=== PATIENT | male | born 1935 | race Caucasian/White ===

== ENCOUNTER 2020-05-30 12:04 | Inpatient (IN) | payer MEDICARE, OTHER ==
[~2020-05-30] VITALS: Ht 182.9 cm; Wt 83.5 kg
[~2020-05-30 12:04] MED LIST: BAYER CHEWABLE81 MG PO; FEXMID7.5 MG PO; LISINOPRIL2.5 MG PO; MIRALAX17 GM PO; OXYTROL PATCH1 PATCH TRANSDERM; TOPROL XL25 MG PO
[2020-05-30 13:08] LABS: BASOPHILS 0.3 % (0-2); EOSINOPHILS 0.1 % (0-7); HEMATOCRIT 44.2 % (42.0-54.0); HEMOGLOBIN 14.6 g/dL (13.5-17.5); IMMATURE GRANULOCYTES 0.6 % (0-5); LYMPHOCYTES 17.2 % (15-50); MCH 29.7 pg (26.0-34.0); MCV 89.8 fL (80.0-100.0); MEAN PLATELET VOLUME 10.1 fL (7.4-10.4); MONOCYTES 8.5 % (2-11); NEUTROPHILS 73.3 % (40-80); PLATELET COUNT 210 10x3/uL (130-400); RBC 4.92 10x6/uL (4.20-6.10); RDW 13.9 % (11.5-14.5); WBC 9.8 10x3/uL (4.8-10.8)
[2020-05-30 13:16] LABS: APTT 32.6 SECONDS (22.8-39.4); INR 1.03 (0.85-1.17); PROTIME 13.5 SECONDS (11.6-15.0)
[2020-05-30 13:18] LABS: CALC OSMOLALITY 286 mosm/kg (275-300); CALCIUM 9.2 mg/dL (8.5-10.1); CARBON DIOXIDE 24.9 mmol/L (21.0-32.0); CHLORIDE - SERUM 100 mmol/L (98-107); CREATININE - SERUM 1.8 mg/dL (0.6-1.3); GLUCOSE 121 mg/dL (74-106); POTASSIUM - SERUM 4.2 mmol/L (3.5-5.1); SODIUM 135 mmol/L (136-145); UREA NITROGEN 57 mg/dL (7-18); eGFR NON AFRICAN AMERICAN 38 mL/min (90-120)
[2020-05-30 13:21] LABS: BILIRUBIN NEGATIVE (NEGATIVE); GLUCOSE NEGATIVE (NEGATIVE); KETONE MODERATE mg/dL (NEGATIVE); NITRITE NEGATIVE (NEGATIVE); UROBILINOGEN NORMAL (NORMAL)
[2020-05-30 13:23] LABS: BACTERIA MODERATE /hpf (NEGATIVE); RED CELLS - URINE 0-5 /hpf (0-5); WHITE CELLS - URINE 0-5 /hpf (NEGATIVE)
[2020-05-30 13:35] LABS: ALBUMIN 3.2 g/dL (3.4-5.0); ALKALINE PHOSPHATASE 124 U/L (30-120); ALT (SGPT) 21 U/L (10-68); BILIRUBIN - TOTAL 0.53 mg/dL (0.2-1.3); CKMB 0.7 U/L (0.0-3.6); CREATINE KINASE 59 UL (21-232); MAGNESIUM - SERUM 2.5 mg/dL (1.8-2.4); PROTEIN - SERUM 7.7 g/dL (6.4-8.2); THYROID STIMULATING HORMONE 0.89 uIU/mL (0.36-3.74)
[2020-05-30 13:36] LABS: TROPONIN-I < 0.017 ng/mL (0.000-0.060)
[2020-05-30 14:05] LABS: UDS - AMPHET NEGATIVE QUAL (NEGATIVE); UDS - BARB NEGATIVE QUAL (NEGATIVE); UDS - BENZO NEGATIVE QUAL (NEGATIVE); UDS - COCAINE NEGATIVE QUAL (NEGATIVE); UDS - OPIATE NEGATIVE QUAL (NEGATIVE); UDS - PCP NEGATIVE QUAL (NEGATIVE); UDS - THC NEGATIVE QUAL (NEGATIVE)
[2020-05-30 16:00] VITALS: BP 130/81
--- NOTE | 2020-05-30 16:27 | NUR ---
PT ARTRIVED VIA STRECHER AND ASSISTED TO BED. BED ALARM PLACED AND FUNCTIONING CORRECTLY. CALL LIGHT WITHIN REACH. PT PULLED OUT IV UPON TRANSFER. 20 G RESTARTED TO RIGHT FOREARM X1 ATTEMPT. DENIES NEEDS OR PAIN AT THIS TIME. ALERT AND CONFUSED. BABY MONITOR PLACED IN ROOM TO KEEP EYES ON PT. WILL CONTINUE TO MONITOR.
[2020-05-30 17:41] VITALS: BP 130/81; BMI 25.0
[2020-05-30 20:40] VITALS: BP 155/96
--- NOTE | 2020-05-30 20:54 | NUR ---
PATIENT IS RESTING IN BED. HE IS CONFUSED X 4. HE IS ON 2 LITERS NASAL CANULA. HE IS ON IV FLUIDS. WE WILL CONTINUE TO MONITOR HIS RESPIRATORY STATUS.
[2020-05-31 01:32] VITALS: BP 152/91
[2020-05-31 03:57] VITALS: BP 150/90
--- NOTE | 2020-05-31 04:13 | NUR ---
PATIENT IS RESTING IN BED. HE IS CONFUSED. HE IS INCONTINENT. HE IS ON NASAL CANULA. WE WILL CONTINUE TO MONITOR HIS RESPIRATORY STATUS.
[2020-05-31 05:53] LABS: BASOPHILS 0.3 % (0-2); EOSINOPHILS 0.1 % (0-7); HEMATOCRIT 43.8 % (42.0-54.0); HEMOGLOBIN 14.3 g/dL (13.5-17.5); IMMATURE GRANULOCYTES 0.6 % (0-5); LYMPHOCYTES 11.3 % (15-50); MCH 29.1 pg (26.0-34.0); MCHC 32.6 g/dL (31.0-37.0); MCV 89.2 fL (80.0-100.0); MONOCYTES 8.6 % (2-11); NEUTROPHILS 79.1 % (40-80); PLATELET COUNT 191 10x3/uL (130-400); RBC 4.91 10x6/uL (4.20-6.10); RDW 14.1 % (11.5-14.5)
[2020-05-31 05:57] LABS: WBC 7.1 10x3/uL (4.8-10.8)
[2020-05-31 06:32] LABS: ANION GAP 14.2 mmol/L (8-16); CALCIUM 9.3 mg/dL (8.5-10.1); CARBON DIOXIDE 22.2 mmol/L (21.0-32.0); CREATININE - SERUM 1.3 mg/dL (0.6-1.3); MAGNESIUM - SERUM 2.3 mg/dL (1.8-2.4); POTASSIUM - SERUM 4.4 mmol/L (3.5-5.1)
[2020-05-31 08:11] VITALS: BP 121/74
--- NOTE | 2020-05-31 10:59 | NUR ---
CALLED RONNI ESPAÑA AND UPDATED HER ON PT'S CONDITION.
--- NOTE | 2020-05-31 12:00 | NUR ---
NEW 22G IV STARTED TO LT WRIST IV X1 STICK, BLOOD SAMPLE COLLECTED AND TAKEN TO LAB. ALSO CLEANED PT UP FROM INCONT EPISODE. PT DENIES ANY NEEDS AT THIS TIME. CALL LIGHT IN REACH, NAD NOTED, WILL CONTINUE TO MONITOR.
[2020-05-31 12:02] VITALS: Ht 182.9 cm; Wt 83.5 kg
[2020-05-31 12:13] LABS: C-REACTIVE PROTEIN 15.8 mg/dL (0.0-0.9)
--- NOTE | 2020-05-31 13:50 | NUR ---
PT UNABLE TO PROVIDED INFORMATION ABOUT HOME MEDS, CALLED [facility] AND DID NOT GET ANYONE TO ANSWER PHONE. RONNI DAUGHTER IN LAW ALSO DOES NOT KNOW WHAT PT'S CURRENT MEDICATIONS ARE, PT MEDS WERE CHANGED WHEN PT WENT TO CARE HOME.
[2020-05-31 14:55] VITALS: BP 141/74
[2020-05-31 20:49] VITALS: BP 123/70
[2020-06-01 03:56] VITALS: BP 159/95
[2020-06-01 06:30] LABS: BASOPHILS 0.1 % (0-2); EOSINOPHILS 0.1 % (0-7); HEMATOCRIT 35.7 % (42.0-54.0); HEMOGLOBIN 11.6 g/dL (13.5-17.5); IMMATURE GRANULOCYTES 0.4 % (0-5); LYMPHOCYTES 8.8 % (15-50); MCH 28.9 pg (26.0-34.0); MCHC 32.5 g/dL (31.0-37.0); MEAN PLATELET VOLUME 9.7 fL (7.4-10.4); MONOCYTES 7.9 % (2-11); NEUTROPHILS 82.7 % (40-80); PLATELET COUNT 200 10x3/uL (130-400); RBC 4.01 10x6/uL (4.20-6.10); RDW 13.8 % (11.5-14.5); WBC 7.7 10x3/uL (4.8-10.8)
[2020-06-01 06:43] LABS: MAGNESIUM - SERUM 2.1 mg/dL (1.8-2.4); PHOSPHOROUS 2.7 mg/dL (2.5-4.9)
[2020-06-01 08:06] VITALS: BP 143/71
--- NOTE | 2020-06-01 09:32 | NUR ---
PROVIDED UPDATE TO LORRAINE ESPAÑA.
--- NOTE | 2020-06-01 13:28 | NUR ---
PT RESTING COMFORTABLY IN BED, DENIES ANY NEEDS AT THIS TIME. CALL LIGHT IN REACH, WILL CONTINUE TO MONITOR.
[2020-06-01 15:06] VITALS: BP 154/87
[2020-06-01 16:35] VITALS: BP 120/71
--- NOTE | 2020-06-01 16:40 | NUR ---
CLEANED PT UP FROM INCONT EPISODE. PT DENIES ANY NEEDS AT THIS TIME. CALL LIGHT IN REACH, NAD NOTED, WILL CONTINUE TO MONITOR.
[2020-06-01 19:25] VITALS: BP 140/75
[2020-06-02 04:38] VITALS: BP 156/82
[2020-06-02 08:46] VITALS: BP 165/82
--- NOTE | 2020-06-02 08:50 | NUR ---
AM MEDS GIVEN AT THIS TIME. ALSO ASSISTED PT WITH BREAKFAST AND CLEANED PT UP FROM INCONT CARE. PT DENIES ANY NEEDS AT THIS TIME. MORE ALERT TODAY BUT CONFUSED. CALL LIGHT IN REACH, NAD NOTED, WILL CONTINUE PLAN OF CARE.
[2020-06-02 10:13] LABS: BASOPHILS 0.6 % (0-2); EOSINOPHILS 0.1 % (0-7); HEMOGLOBIN 13.4 g/dL (13.5-17.5); IMMATURE GRANULOCYTES 0.3 % (0-5); LYMPHOCYTES 8.1 % (15-50); MCH 30.2 pg (26.0-34.0); MCHC 32.7 g/dL (31.0-37.0); MCV 92.6 fL (80.0-100.0); MEAN PLATELET VOLUME 9.5 fL (7.4-10.4); MONOCYTES 6.9 % (2-11); PLATELET COUNT 174 10x3/uL (130-400); RBC 4.43 10x6/uL (4.20-6.10); RDW 13.9 % (11.5-14.5); WBC 9.1 10x3/uL (4.8-10.8)
[2020-06-02 10:33] LABS: ALBUMIN 2.3 g/dL (3.4-5.0); BILIRUBIN - DIRECT 0.14 mg/dL (0.00-0.30); BILIRUBIN - INDIRECT 0.26 mg/dL (0.00-1.00); BILIRUBIN - TOTAL 0.4 mg/dL (0.2-1.3); MAGNESIUM - SERUM 1.9 mg/dL (1.8-2.4); PROTEIN - SERUM 6.1 g/dL (6.4-8.2)
[2020-06-02 14:49] VITALS: BP 154/83
--- NOTE | 2020-06-02 17:26 | NUR ---
CLEANED PT UP FROM INCONT EPISODE.
[2020-06-02 21:07] VITALS: BP 145/72
[2020-06-03 07:47] VITALS: BP 153/92
--- NOTE | 2020-06-03 08:00 | NUR ---
PT RECEIVED AWAKE AND ALERT BUT CONFUSED. POSITIONED IN BED FOR MEALS. ASSIST TO EAT. MEDS GIVEN. PT IS INCONTINENT.
[2020-06-03 13:04] VITALS: BP 154/79
[2020-06-03 14:05] LABS: BASOPHILS 0.1 % (0-2); EOSINOPHILS 0.1 % (0-7); HEMATOCRIT 39.8 % (42.0-54.0); HEMOGLOBIN 13.4 g/dL (13.5-17.5); IMMATURE GRANULOCYTES 0.4 % (0-5); LYMPHOCYTES 7.9 % (15-50); MCH 29.3 pg (26.0-34.0); MCHC 33.7 g/dL (31.0-37.0); MEAN PLATELET VOLUME 9.6 fL (7.4-10.4); MONOCYTES 4.9 % (2-11); NEUTROPHILS 86.6 % (40-80); RBC 4.57 10x6/uL (4.20-6.10); RDW 13.8 % (11.5-14.5); WBC 11.2 10x3/uL (4.8-10.8)
[2020-06-03 14:06] LABS: MCV 87.1 fL (80.0-100.0); PLATELET COUNT 256 10x3/uL (130-400)
[2020-06-03 14:19] LABS: ALBUMIN 2.5 g/dL (3.4-5.0); ANION GAP 11.2 mmol/L (8-16); BILIRUBIN - TOTAL 0.49 mg/dL (0.2-1.3); CALCIUM 8.7 mg/dL (8.5-10.1); CARBON DIOXIDE 22.8 mmol/L (21.0-32.0); CREATININE - SERUM 1.2 mg/dL (0.6-1.3); MAGNESIUM - SERUM 1.9 mg/dL (1.8-2.4); PHOSPHOROUS 2.2 mg/dL (2.5-4.9); PROTEIN - SERUM 6.3 g/dL (6.4-8.2)
--- NOTE | 2020-06-03 14:26 | NUR ---
Nutrition Follow-up: Chart reviewed. Noted patient with L 1st toe infection. Diet: Cardiac PO intake: 50% x last 3 meals Last BM: 06/01/20 x 2. Wt: 184# (05/31/20) Meds reviewed. Labs noted: Glu 121(H), PO4 2.2(L) Recommend continue current diet as tolerated. Will add Ensure TID for added nutrients and to potentially help with wound healing. RD following.
[2020-06-03 16:58] VITALS: BP 147/94
--- NOTE | 2020-06-03 19:20 | NUR ---
REPORT RECIEVED AND ROUNDING COMPLETE. PATIENT LAYING IN BED LOW FOWLERS POSITION, ASSISTED DAY NURSE IN REDRESSING PATIENT AND CHANGING WET PADS. PATIENT HAS A PIV TO THE LEFT WRIST THAT IS RUNNING FLUIDS AT THIS TIME. SHOWS NO S/SX OF DISTRESS, ONE MINUTE TALKING AND MAKING SENSE THEN THE NEXT WORD SALAD, PATIENT IS VERY PLEASENT. BED ALARM ON AND ALSO VIDEO MONITORING. CALL LIGHT WITH IN REACH AND BED IN LOWEST LOCKED POSITION.
[2020-06-03 20:00] VITALS: BP 173/81
--- NOTE | 2020-06-03 20:56 | NUR ---
WENT INTO [facility] FOR [facility] AND PATIENT HAS PULLED OUT PIV, CATH INTACT. FULL BATH AND LINEN CHANGE COMPLETE. WILL CALL THE MD CLOTH FOLDER HAND AND LET THEM KNOW PATIENT STATES HE WOULD NO LIKE ANOTHER. BED IN LOWEST LOCKED POSITION AND BED ALARM IS ON AND WORKING.
--- NOTE | 2020-06-03 22:34 | NUR ---
TALKED WITH RYANN LEONARD AND SHE STATED TO PUT IN CONSULT OF A PICC LINE FOR THE MORNING. WILL FOLLOW ORDERS.
[2020-06-04 04:00] VITALS: BP 162/94
[2020-06-04 07:39] VITALS: BP 158/87
[2020-06-04 08:29] LABS: ALBUMIN 2.7 g/dL (3.4-5.0); ANION GAP 13.5 mmol/L (8-16); BILIRUBIN - TOTAL 0.7 mg/dL (0.2-1.3); CALCIUM 9.2 mg/dL (8.5-10.1); CARBON DIOXIDE 23.6 mmol/L (21.0-32.0); CREATININE - SERUM 1.1 mg/dL (0.6-1.3); PHOSPHOROUS 2.1 mg/dL (2.5-4.9); POTASSIUM - SERUM 4.1 mmol/L (3.5-5.1); PROTEIN - SERUM 6.1 g/dL (6.4-8.2)
[2020-06-04 08:56] LABS: BASOPHILS 0.3 % (0-2); EOSINOPHILS 0 % (0-7); HEMATOCRIT 39.4 % (42.0-54.0); HEMOGLOBIN 13.4 g/dL (13.5-17.5); IMMATURE GRANULOCYTES 1.2 % (0-5); LYMPHOCYTES 13.5 % (15-50); MCH 29.3 pg (26.0-34.0); MEAN PLATELET VOLUME 9.6 fL (7.4-10.4); RBC 4.58 10x6/uL (4.20-6.10); RDW 13.6 % (11.5-14.5)
[2020-06-04 08:57] LABS: PLATELET COUNT 140 10x3/uL (130-400); WBC 7.7 10x3/uL (4.8-10.8)
--- NOTE | 2020-06-04 10:37 | MORECARE ---
CASE MANAGEMENT DISCHARGE SUMMARY PATIENT: AVA DONG UNIT: [id number] ADM DATE: 05/30/20 AGE: 85 : 37 SEX: M ROOM/BED: D.2131 AUTHOR: RAMSEY GARZA PHYSICIAN: REFERRING PHYSICIAN: MARVIN BELL MD DATE OF SERVICE: 06/04/20 Discharge Plan Patient Name: AVA DONG [facility] [facility] 1935 Planned Disposition: [facility] Facility Anticipated Discharge Date: Discharge Date: Expected LOS: Initial Reviewer: [email or web address] Initial Review Date: 05/30/2020 Generated: 06/04/20 11:36 am Patient Name: AVA DONG Page 64382 at 1037 All edits/amendments must be made on the electronic document DICTATION DATE: 06/04/20 1036 GRINDER SETUP OPERATOR: SANDRA 06/04/20 1036 RPT#: [id number] DC DATE: STATUS: ADM IN [facility] [address] [place] [address] END OF REPORT
[2020-06-04 12:32] VITALS: BP 156/80
[2020-06-04 20:00] VITALS: BP 131/72
[2020-06-05 04:00] VITALS: BP 165/100
[2020-06-05 06:12] LABS: BASOPHILS 0.1 % (0-2); EOSINOPHILS 0.4 % (0-7); HEMATOCRIT 39.3 % (42.0-54.0); HEMOGLOBIN 13.6 g/dL (13.5-17.5); IMMATURE GRANULOCYTES 0.6 % (0-5); LYMPHOCYTES 15.1 % (15-50); MCH 29.6 pg (26.0-34.0); MCHC 34.6 g/dL (31.0-37.0); MCV 85.6 fL (80.0-100.0); MEAN PLATELET VOLUME 10.4 fL (7.4-10.4); MONOCYTES 13.5 % (2-11); NEUTROPHILS 70.3 % (40-80); RBC 4.59 10x6/uL (4.20-6.10); RDW 13.6 % (11.5-14.5); WBC 7.8 10x3/uL (4.8-10.8)
[2020-06-05 06:18] LABS: PLATELET COUNT 255 10x3/uL (130-400)
[2020-06-05 06:35] LABS: ALBUMIN 2.6 g/dL (3.4-5.0); ANION GAP 11.5 mmol/L (8-16); BILIRUBIN - TOTAL 0.77 mg/dL (0.2-1.3); CALCIUM 8.4 mg/dL (8.5-10.1); CARBON DIOXIDE 23.6 mmol/L (21.0-32.0); CREATININE - SERUM 1.1 mg/dL (0.6-1.3); POTASSIUM - SERUM 4.1 mmol/L (3.5-5.1); PROTEIN - SERUM 6.1 g/dL (6.4-8.2)
--- NOTE | 2020-06-05 07:30 | NUR ---
PT RECEIVED ASLEEP IN BED. GOWN PULLED OFF, FIDGETS WITH HANDS. COVERED WITH CLEAN LINENS AND TRIED TO GET TO WAKE UP TO EAT. WILL KEEP TRAY AND TRY AGAIN.
[2020-06-05 08:00] VITALS: BP 160/80
--- NOTE | 2020-06-05 09:19 | MORECARE ---
CASE MANAGEMENT DISCHARGE SUMMARY PATIENT: AVA DING UNIT: [id number] ADM DATE: 05/30/20 AGE: 85 : 37 SEX: M ROOM/BED: D.2131 AUTHOR: RAMSEY GARZA PHYSICIAN: REFERRING PHYSICIAN: MARVIN BELL MD DATE OF SERVICE: 06/05/20 Discharge Plan Patient Name: [facility]ING [facility] [facility] 1935 Planned Disposition: Care Home Facility Anticipated Discharge Date: Discharge Date: Expected LOS: Initial Reviewer: [email or web address] Initial Review Date: 05/30/2020 Generated: 06/05/20 10:18 am DCPIA - Discharge Planning Initial Assessment Updated by [email or web address]: Jayan Escobar on 06/04/20 10:37 am * Is the patient Alert and Oriented? No * PCP Oswaldo * [facility] * Preadmission Environment Home with Family * ADLs Independent * Equipment Rolling Walker * List name and contact numbers for known caregivers / representatives who currently or will assist patient after discharge: Delilah Ding [phone] * Verbal permission to speak to the caregivers and representatives has been obtained from the patient. N/A * Community resources currently utilized None * Additional services required to return to the preadmission environment? Yes * Can the patient safely return to the preadmission environment? No * Has this patient been hospitalized within the prior 30 days at any hospital? No Last DP export: 06/04/20 9:37 am Patient Name: AVA DING Page 16930 at 0919 All edits/amendments must be made on the electronic document DICTATION DATE: 06/05/20917 ELECTROGALVANIZING MACHINE OPERATOR: SANDRA 06/05/20917 RPT#: [id number] DC DATE: STATUS: ADM IN [facility] [address] [place] [address] END OF REPORT
--- NOTE | 2020-06-05 09:27 | MORECARE ---
CASE MANAGEMENT DISCHARGE SUMMARY PATIENT: AVA DING UNIT: [id number] ADM DATE: 05/30/20 AGE: 85 : 37 SEX: M ROOM/BED: D.2131 AUTHOR: RAMSEY GARZA PHYSICIAN: REFERRING PHYSICIAN: MARVIN BELL MD DATE OF SERVICE: 06/05/20 Discharge Plan Patient Name: AVA DING Facility: [facility]:[place] : 1935 Planned Disposition: Care Home Facility Anticipated Discharge Date: Discharge Date: Expected LOS: Initial Reviewer: [email or web address] Initial Review Date: 05/30/2020 Generated: 06/05/20 10:26 am Comments DCP- Discharge Planning Updated by [email or web address]: Jayna Escobar on 06/05/20 8:[address] Patient Name: AVA DING Admission Status: ER Accout number: [id number] Admission Date: 05-30-2020 : 1935 Admission Diagnosis:COVID-19 Attending: MARVIN BELL Current LOS: 6 Anticipated DC Date: Planned Disposition: Care Home Facility Primary Insurance: MEDICARE A & B Discharge Planning Comments: CM unable to meet with patient because of COVID isolation to complete initial dc planning assessment. CM called pt room and unable to reach. CM called Delilah (DTR) at [phone] to complete dc assessment. CM verified patient's address, phone number, and emergency contact phone numbers. Patient was at [facility] for rehab, and the facility had an increase number of COVID cases so Delilah reports she took him home. Delilah reports she did not take him home soon enough since he got the COVID. Delilah states she would like her father to go to [place] for rehab. RAO educated that most facilities are not accepting new patients, especially those with COVID. Delilah asked if CM could call [facility] and see if he can be readmitted there. States he still needs rehab. Rao called Padmini at [phone] and provided clinical disposition, and faxed clinicals. Padmini states the facility will accept him back. At discharge patient be admitted into a MCR bed at [facility] and Delilah feels this is a safe discharge. Transportation provider at discharge will be from [facility]. CM will continue to follow and will assist as needed with dc plans/needs. Lumber Estimator: Jayna Escobar DCPIA - Discharge Planning Initial Assessment Updated by [email or web address]: Jayna Escobar on 06/04/20 10:37 am * Is the patient Alert and Oriented? No * PCP Oswaldo * [facility] * Preadmission Environment Home with Family * ADLs Independent * Equipment Rolling Walker * List name and contact numbers for known caregivers / representatives who currently or will assist patient after discharge: Delilah Ding [phone] * Verbal permission to speak to the caregivers and representatives has been obtained from the patient. N/A * Community resources currently utilized None * Additional services required to return to the preadmission environment? Yes * Can the patient safely return to the preadmission environment? No * Has this patient been hospitalized within the prior 30 days at any hospital? No Last DP export: 06/05/20 8:19 am Patient Name: AVA DING Page 16791 at 0927 All edits/amendments must be made on the electronic document DICTATION DATE: 06/05/20925 BELT WORKER: SANDRA 06/05/20925 RPT#: [id number] DC DATE: STATUS: ADM IN [facility] [address] [place] [address] END OF REPORT
[2020-06-05 11:01] VITALS: BP 161/87
--- NOTE | 2020-06-05 11:23 | NUR ---
PT PLACED BACK IN GOWN. MEDS GIVEN, ENCOURAGED TO EAT. PT IS STILL LETHARGIC, KEEPS EYES CLOSED AND FIDGETS WITH HANDS.
--- NOTE | 2020-06-05 11:29 | NUR ---
Nutrition Follow-up: Pt in droplet isolation; covid-19 +. Nursing reports pt ate some of his breakfast this AM and drinks some Ensure but requires feeding. Diet: Cardiac, Ensure TID Wt: 184# (05/31) Last BM: 06/04 per chart Labs noted: Ca 8.4, Alb 2.6 Meds noted: Pepcid, NS @ 75, electrolyte protocol -Encourage PO intake and honor food preferences within diet restrictions. -Monitor wt. -RD following.
[2020-06-05 15:24] VITALS: BP 141/69
--- NOTE | 2020-06-05 16:39 | NUR ---
PT STILL LETHARGIC. POSITIONED FOR MEAL. WILL ASSIST IN EATING.
--- NOTE | 2020-06-05 19:10 | NUR ---
finished report rounds and pt was non verbal pt is disrobing in room bed is low and locked pt has call light in reach
--- NOTE | 2020-06-05 21:34 | NUR ---
i have changed pt inc of urine and applied telemtry as i noted has been ordered iv remains intact at this time
[2020-06-05 22:45] VITALS: BP 150/64
[2020-06-06 05:07] LABS: BASOPHILS 0.1 % (0-2); EOSINOPHILS 0.9 % (0-7); HEMATOCRIT 39.3 % (42.0-54.0); HEMOGLOBIN 13.4 g/dL (13.5-17.5); LYMPHOCYTES 13.9 % (15-50); MCH 29.1 pg (26.0-34.0); MCHC 34.1 g/dL (31.0-37.0); MCV 85.2 fL (80.0-100.0); MEAN PLATELET VOLUME 9.7 fL (7.4-10.4); MONOCYTES 12.1 % (2-11); PLATELET COUNT 288 10x3/uL (130-400); RBC 4.61 10x6/uL (4.20-6.10); RDW 13.5 % (11.5-14.5); WBC 8.8 10x3/uL (4.8-10.8)
[2020-06-06 05:38] LABS: ALBUMIN 2.6 g/dL (3.4-5.0); ANION GAP 12.9 mmol/L (8-16); BILIRUBIN - TOTAL 0.76 mg/dL (0.2-1.3); CALCIUM 8.6 mg/dL (8.5-10.1); CARBON DIOXIDE 25.4 mmol/L (21.0-32.0); CREATININE - SERUM 1.1 mg/dL (0.6-1.3); POTASSIUM - SERUM 4.3 mmol/L (3.5-5.1)
[2020-06-06 05:47] VITALS: BP 106/80
[2020-06-06 07:40] VITALS: BP 137/66
--- NOTE | 2020-06-06 10:05 | NUR ---
PT RESTING IN BED WITH EYES CLOSED, BREATHING EVEN AND UNLABORED, NO S/S OF DISTRESS NOTED AT THIS TIME. AROUSES TO VOICE AND STIMULI. ADMINISTERED MEDICATION, NO DIFFICULTIES. RESTING COMFORTABLY. BED IN LOWEST POSITION, BED RAILS X2, CALL LIGHT WITHIN REACH. WILL CONTINUE TO MONITOR.
[2020-06-06 10:20] VITALS: BP 161/74
[2020-06-06] MEDS ORDERED: OMNICEF300 MG PO (10:34)
[2020-06-06] MEDS ORDERED: DEXAMETHASONE2 MG PO (10:35)
--- NOTE | 2020-06-06 11:44 | MORECARE ---
CASE MANAGEMENT DISCHARGE SUMMARY PATIENT: AVA DING UNIT: [id number] ADM DATE: 05/30/20 AGE: 85 : 37 SEX: M ROOM/BED: D.2131 AUTHOR: RAMSEY GARZA PHYSICIAN: REFERRING PHYSICIAN: MARVIN BELL MD DATE OF SERVICE: 06/06/20 Discharge Plan Patient Name: AVA DING Facility: [facility]:[place] : 1935 Planned Disposition: Penitentiary Facility Anticipated Discharge Date: Discharge Date: Expected LOS: Initial Reviewer: [email or web address] Initial Review Date: 05/30/2020 Generated: 06/06/20 12:43 pm Comments DCP- Discharge Planning Updated by [email or web address]: Jayna Escobar on 06/05/20 8:[address] Patient Name: AVA DING Admission Status: ER Accout number: [id number] Admission Date: 05-30-2020 : 1935 Admission Diagnosis:COVID-19 Attending: MARVIN BELL Current LOS: 6 Anticipated DC Date: Planned Disposition: Penitentiary Facility Primary Insurance: MEDICARE A & B Discharge Planning Comments: CM unable to meet with patient because of COVID isolation to complete initial dc planning assessment. CM called pt room and unable to reach. CM called Delilah (DTR) at [phone] to complete dc assessment. CM verified patient's address, phone number, and emergency contact phone numbers. Patient was at [facility] for rehab, and the facility had an increase number of COVID cases so Delilah reports she took him home. Delilah reports she did not take him home soon enough since he got the COVID. Delilah states she would like her father to go to [place] for rehab. RAO educated that most facilities are not accepting new patients, especially those with COVID. Delilah asked if CM could call [facility] and see if he can be readmitted there. States he still needs rehab. Rao called Padmini at [phone] and provided clinical disposition, and faxed clinicals. Padmini states the facility will accept him back. At discharge patient be admitted into a MCR bed at [facility] and Delilah feels this is a safe discharge. Transportation provider at discharge will be from [facility]. CM will continue to follow and will assist as needed with dc plans/needs. Box Worker: Jayna Escobar DCPIA - Discharge Planning Initial Assessment Updated by [email or web address]: Jayna Escobar on 06/04/20 10:37 am * Is the patient Alert and Oriented? No * PCP Oswaldo * [facility] * Preadmission Environment Home with Family * ADLs Independent * Equipment Rolling Walker * List name and contact numbers for known caregivers / representatives who currently or will assist patient after discharge: Delilah Ding [phone] * Verbal permission to speak to the caregivers and representatives has been obtained from the patient. N/A * Community resources currently utilized None * Additional services required to return to the preadmission environment? Yes * Can the patient safely return to the preadmission environment? No * Has this patient been hospitalized within the prior 30 days at any hospital? No External Providers External Provider: [facility] Next Contact Date: Service Request Date: Service Type: Resolution: Reviewer: Comments: Last DP export: 06/05/20 8:27 am Patient Name: AVA DING Page 27373 at 1144 All edits/amendments must be made on the electronic document DICTATION DATE: 06/06/20 1144 VICE PRESIDENT BUSINESS DEVELOPMENT: SANDRA 06/06/20 1144 RPT#: [id number] DC DATE: STATUS: ADM IN [facility] [address] [place] [address] END OF REPORT
--- NOTE | 2020-06-06 12:35 | MORECARE ---
CASE MANAGEMENT DISCHARGE SUMMARY PATIENT: AVA DING UNIT: [id number] ADM DATE: 05/30/20 AGE: 85 : 37 SEX: M ROOM/BED: D.2131 AUTHOR: RAMSEY GARZA PHYSICIAN: REFERRING PHYSICIAN: MARVIN BELL MD DATE OF SERVICE: 06/06/20 Discharge Plan Patient Name: AVA DIGN Facility: [facility]:[place] : 1935 Planned Disposition: Retirement Facility Anticipated Discharge Date: Discharge Date: Expected LOS: Initial Reviewer: [email or web address] Initial Review Date: 05/30/2020 Generated: 06/06/20 1:34 pm Comments DCP- Discharge Planning Updated by [email or web address]: Jayna Escobar on 06/06/20 11:[address] Patient Name: AVA DING Encounter No: [id number] : 1935 Primary Insurance: MEDICARE A & B Anticipated DC Date: Planned Disposition: Retirement Facility External Planned Provider: : DCP follow-up note: CM called [facility] and spoke with Arelis CINTRON at [phone] who has agreed to accept the patient into the [facility] in a [employer] bed. CM faxed clinicals. Mike from transportation will return call for estimated curing pickling packer time.CM called pt jeffrey Slaughter at [phone] for update and discharge disposition. Patient and family in agreement with discharge plan. DC IMM explained via phone. Jerald verbalized understanding. Imm will be sent by certified mail with return receipt requested. SNF phone number and contact information given to patient \family. Nursing can call report to [facility] at [phone]. Jayna Escobar DCP- Discharge Planning Updated by [email or web address]: Jayna Escobar on 06/05/20 8:[address] Patient Name: AVA DING Admission Status: ER Accout number: [id number] Admission Date: 05-30-2020 : 1935 Admission Diagnosis:COVID-19 Attending: MARVIN BELL Current LOS: 6 Anticipated DC Date: Planned Disposition: Retirement Facility Primary Insurance: MEDICARE A & B Discharge Planning Comments: CM unable to meet with patient because of COVID isolation to complete initial dc planning assessment. CM called pt room and unable to reach. CM called Delilah (DTR) at [phone] to complete dc assessment. CM verified patient's address, phone number, and emergency contact phone numbers. Patient was at [facility] for rehab, and the facility had an increase number of COVID cases so Delilah reports she took him home. Delilah reports she did not take him home soon enough since he got the COVID. Delilah states she would like her father to go to [place] for rehab. CM educated that most facilities are not accepting new patients, especially those with COVID. Delilah asked if CM could call [facility] and see if he can be readmitted there. States he still needs rehab. Cm called Padmini at [phone] and provided clinical disposition, and faxed clinicals. Padmini states the facility will accept him back. At discharge patient be admitted into a MCR bed at [facility] and Delilah feels this is a safe discharge. Transportation provider at discharge will be from [facility]. CM will continue to follow and will assist as needed with dc plans/needs. Survey Technician: Jayna Escobar DCPIA - Discharge Planning Initial Assessment Updated by [email or web address]: Jayna Escobar on 06/04/20 10:37 am * Is the patient Alert and Oriented? No * PCP Oswaldo * [facility] * Preadmission Environment Home with Family * ADLs Independent * Equipment Rolling Walker * List name and contact numbers for known caregivers / representatives who currently or will assist patient after discharge: Delilah Jimenezlen [phone] * Verbal permission to speak to the caregivers and representatives has been obtained from the patient. N/A * Community resources currently utilized None * Additional services required to return to the preadmission environment? Yes * Can the patient safely return to the preadmission environment? No * Has this patient been hospitalized within the prior 30 days at any hospital? No Coverage Notice Reviewer: [id number] - Jayna Escobar Notice Issued Date-Time: 06/06/2020 12:00 Notice Type: IM Discharge Notice Notice Delivered To: Family Member Relationship to Patient: Consumer Services Advisor Name: Delivery Method: HAND - Hand Delivered Blanka Days: Prior Verbal Notification: Yes Recipient Understood Notice: Yes Recipient Signature: Med Rec Note Co-signed by Attending: Coverage Notice Comment: dc imm delivered via phone Last DP export: 06/06/20 10:44 am Patient Name: AVA DING Page 73396 at 1235 All edits/amendments must be made on the electronic document DICTATION DATE: 06/06/20 1235 TECHNICAL SERVICE REP: SANDRA 06/06/20 1235 RPT#: [id number] DC DATE: STATUS: ADM IN [facility] [address] [place] [address] END OF REPORT
--- NOTE | 2020-06-06 13:48 | NUR ---
CALLED REPORT TO MARLY NICHOLSON AT [facility].
--- NOTE | 2020-06-06 14:30 | NUR ---
DC IV FROM LEFT FOREARM, CATHETER TIP INTACT, TOLERATED WELL. APPEARS THAT IV INFILTRATED, ARM SWOLLEN. APPLIED WARM CLOTHS TO SITE. PT DRESSED. PAPERWORK SIGNED BY NURSE AND WITNESSED DUE TO PT BEING CONFUSED AND UNABLE TO SIGN FOR HIMSELF.
--- NOTE | 2020-06-06 15:25 | NUR ---
PT PLACED IN WHEELCHAIR AND ESCORTED TO EXIT TO RIDE BACK TO SNF BY AIDE.
--- NOTE | 2020-06-07 12:55 | MORECARE ---
CASE MANAGEMENT DISCHARGE SUMMARY PATIENT: AVA DING UNIT: [id number] ADM DATE: 05/30/20 AGE: 85 : 39 SEX: M ROOM/BED: D.2131 AUTHOR: RAMSEY GARZA PHYSICIAN: REFERRING PHYSICIAN: MARVIN BELL MD DATE OF SERVICE: 06/07/20 Discharge Plan Patient Name: AVA DING Facility: [facility]:[place] : 1935 Planned Disposition: Snf Facility Anticipated Discharge Date: Discharge Date: 06/06/2020 Expected LOS: Initial Reviewer: [id number] Initial Review Date: 05/30/2020 Generated: 06/07/20 1:54 pm Comments DCP- Discharge Planning Updated by [email or web address]: Jayna Escobar on 06/06/20 11:[address] Patient Name: AVA DING Encounter No: [id number] : 1935 Primary Insurance: MEDICARE A & B Anticipated DC Date: Planned Disposition: Snf Facility External Planned Provider: : DCP follow-up note: CM called [facility] and spoke with Arelis CINTRON at [phone] who has agreed to accept the patient into the [facility] in a [facility] bed. CM faxed clinicals. Mike from transportation will return call for estimated berry picker machine operator time.CM called pt jeffrey Slaughter at [phone] for update and discharge disposition. Patient and family in agreement with discharge plan. DC IMM explained via phone. Jerald verbalized understanding. Imm will be sent by certified mail with return receipt requested. SNF phone number and contact information given to patient \family. Nursing can call report to [place] at [phone]. Jayna Escobar DCP- Discharge Planning Updated by [email or web address]: Jayna Escobar on 06/05/20 8:[address] Patient Name: AVA DING Admission Status: ER Accout number: [id number] Admission Date: 05-30-2020 : 1935 Admission Diagnosis:COVID-19 Attending: MARVIN BELL Current LOS: 6 Anticipated DC Date: Planned Disposition: Snf Facility Primary Insurance: MEDICARE A & B Discharge Planning Comments: CM unable to meet with patient because of COVID isolation to complete initial dc planning assessment. CM called pt room and unable to reach. CM called Delilah (DTR) at [phone] to complete dc assessment. CM verified patient's address, phone number, and emergency contact phone numbers. Patient was at [facility] for rehab, and the facility had an increase number of COVID cases so Delilah reports she took him home. Delilah reports she did not take him home soon enough since he got the COVID. Delilah states she would like her father to go to [facility] for rehab. RAO educated that most facilities are not accepting new patients, especially those with COVID. Delilah asked if CM could call [facility] and see if he can be readmitted there. States he still needs rehab. Cm called [facility] at [phone] and provided clinical disposition, and faxed clinicals. Padmini states the facility will accept him back. At discharge patient be admitted into a MCR bed at [facility] and Delilah feels this is a safe discharge. Transportation provider at discharge will be from [facility]. CM will continue to follow and will assist as needed with dc plans/needs. Flavor Maker: Jayna Escobar DCPIA - Discharge Planning Initial Assessment Updated by [email or web address]: Jayna Escobar on 06/04/20 10:37 am * Is the patient Alert and Oriented? No * PCP [facility] * Pharmacy [facility] * Preadmission Environment Home with Family * ADLs Independent * Equipment Rolling Walker * List name and contact numbers for known caregivers / representatives who currently or will assist patient after discharge: Delilah Ding [phone] * Verbal permission to speak to the caregivers and representatives has been obtained from the patient. N/A * Community resources currently utilized None * Additional services required to return to the preadmission environment? Yes * Can the patient safely return to the preadmission environment? No * Has this patient been hospitalized within the prior 30 days at any hospital? No Coverage Notice Reviewer: [id number] - Jayna Escobar Notice Issued Date-Time: 06/06/2020 12:00 Notice Type: IM Discharge Notice Notice Delivered To: Family Member Relationship to Patient: Slot Technician Name: Delivery Method: HAND - Hand Delivered Blanka Days: Prior Verbal Notification: Yes Recipient Understood Notice: Yes Recipient Signature: Med Rec Note Co-signed by Attending: Coverage Notice Comment: dc imm delivered via phone Last DP export: 06/06/20 11:35 am Patient Name: AVA DING Page [id number] at 1255 All edits/amendments must be made on the electronic document DICTATION DATE: 06/07/20 1259 PATTERN CUTTER: SANDRA 06/07/20 1256 RPT#: [id number] DC DATE:06/06/20 STATUS: DIS IN [facility] [address] [place] [address] END OF REPORT
== END 2020-06-06 15:26 | DRG 177 ==
LOC: D.ER 12:04 → D.M2 14:12
PROVIDERS: Family Medicine; Internal Medicine Pulmonary Disease; ADMIT Emergency Medicine; ATTEND Emergency Medicine
DX: U07.1 COVID-19 (principal); G93.41 Metabolic encephalopathy; J96.01 Acute respiratory failure with hypoxia; J18.9 Pneumonia, unspecified organism; N39.0 Urinary tract infection, site not specified; N17.9 Acute kidney failure, unspecified; E86.0 Dehydration; Z95.0 Presence of cardiac pacemaker; R53.81 Other malaise; I10 Essential (primary) hypertension; N40.0 Benign prostatic hyperplasia without lower urinary tract symptoms; L03.032 Cellulitis of left toe